=== PATIENT | female | born 1945 | race Caucasian/White ===

== ENCOUNTER 2020-03-12 10:50 | Outpatient (CLI) | payer MEDICARE, OTHER ==
--- NOTE | 2020-03-12 12:00 | DEXA Report ---
PROCEDURE: Dexa Spine and/or Hip INDICATIONS: OSTEOPOROSIS,POSTMENOPAUSAL TECHNIQUE: Dual energy x-ray absorptiometry (DXA) was performed on a [employer] System. Regions measur ed are the AP Spine, femoral neck, and if needed forearm. COMPARISON: None. FINDINGS: Lumbar Spine: Bone Mineral Density 0.897 g/cm/cm,T score -2.4 Left Hip: Bone Mineral Density 0.744 g/cm/cm,T score -2.1 Left Femoral Neck: Bone Mineral Density 0.756 g/cm/cm, T score -2.0 (T score greater or equal to -1.0: NORMAL) (T score from -1.1 to -2.4: OSTEOPENIA) (T score less than or equal to -2.5 to: OSTEOPOROSIS) Impression: Osteopenia of the lumbar spine and the left hip. Patients with diagnosis of osteoporosis or osteopenia should have regular bone mineral density assess ment. For those eligible for Medicare, routine testing is allowed once every 2 years. Testing frequ ency can be increased for patients who have rapidly progressing disease or for those who are receivin g medical therapy to restore bone mass. Reviewed by: Allie Mosley MD on 03/12/2020 11:59 AM PST Approved by: Allie Mosley MD on 03/12/2020 11:59 AM PST Station ID: [id number]
== END 2020-03-12 10:51 | disposition home or self-care (01) ==
LOC: DI 10:50
PROVIDERS: ATTEND Family Medicine
DX: M85.89 Other specified disorders of bone density and structure, multiple sites (principal)

== ENCOUNTER 2022-01-20 08:43 | Day surgery (SDC) | payer MEDICARE, OTHER ==
[2022-01-20] MEDS ORDERED: LACTATED RINGERS 1,000 ML IV ONE ×2 (09:08→12:54)
[2022-01-20] MEDS ORDERED: PROPOFOL 500 MG/50 ML 500 MG/50 ML VIAL ONE (10:36)
--- NOTE | 2022-01-20 10:47 | ANESTHESIA ---
Pre-Anesthesia VS, & Labs - Diagnosis Mild anemia, screening exam - Procedure EGD and colonoscopy Vital Signs: Temp Pulse Resp BP Pulse Ox O2 Flow Rate 36.9 C 67 13 154/79 H 100 0 01/20/22 09:09 01/20/22 09:09 01/20/22 09:09 01/20/22 09:09 01/20/22 09:09 01/20/22 09:09 Height: 5 ft 8 in Weight (kg): 57.1 kg Body Mass Index: 19.1 BMI Classification: Normal - NPO >8 hours - Is Patient ?: No Home Medications and Allergies Home Medications: Ambulatory Orders Estradiol [Estrace] 1 tab PO DAILY 01/20/22 Liothyronine [Cytomel] 2 tab PO DAILY 01/20/22 Medroxyprogesterone Acetate [Provera] 1 tab PO DAILY 01/20/22 Sod Sulf/Pot Chloride/Mag Sulf [Sutab 1.479-0.225-0.188 gm Tab] 01/20/22 Estradiol [Estrace] 1 tab PO DAILY 01/20/22 Liothyronine [Cytomel] 2 tab PO DAILY 01/20/22 Medroxyprogesterone Acetate [Provera] 1 tab PO DAILY 01/20/22 Sod Sulf/Pot Chloride/Mag Sulf [Sutab 1.479-0.225-0.188 gm Tab] 01/20/22 Allergies/Adverse Reactions: Allergies Allergy/AdvReac Type Severity Reaction Status Date / Time codeine Allergy Unknown Unknown Verified 01/20/22 09:23 Anes History & Medical History - Anesthetic History Anesthesia Complications: reports: Post-Operative Nausea/Vomiting - Medical History Cardiovascular: reports: None Pulmonary: reports: None Gastrointestinal: reports: Other Urinary: reports: None Neuro: reports: None Musculoskeletal: reports: Osteopenia Endocrine/Autoimmune: reports: None Blood Disorders: reports: Anemia Skin: reports: None Smoking Status: Never smoker Psychosocial: reports: No issues indicated History of Cancer?: Yes (melanoma) - Surgical History General: reports: Other Gynecologic: reports: Hysterectomy Orthopedic: reports: Other Exam General: Alert, Oriented x3, Cooperative, No acute distress Dental: WNL Mouth Openin Fingerbreadth Neck Mobility: Normal Mallampati classification: II Thyromental Distance: 4-6 cm Mental/Cognitive Status: Alert/Oriented X3, Normal for patient Plan Anesthesia Type: General, Total IV Consent for Procedure(s) Verified and Reviewed: Yes Code Status: Attempt Resuscitation ASA classification: 2-Mild systemic disease Is this case an emergency?: No
[2022-01-20] MEDS ORDERED: MIDAZOLAM 2 MG/2 ML VIAL ONE (11:52)
[2022-01-20] MEDS ORDERED: LIDOCAINE-PF 2% 10 ML AMP SUBQ ONE (11:55)
[2022-01-20 13:42] VITALS: BP 135/64
--- NOTE | 2022-01-20 16:14 | ANESTHESIA POST OP EVALUATION ---
Anesthesia Post Eval - Post Anesthesia Eval Vitals: Last Vital Signs Temp 36.6 C 01/20/22 13:42 Pulse 74 01/20/22 13:42 Resp 16 01/20/22 13:42 BP 135/64 H 01/20/22 13:42 Pulse Ox 100 01/20/22 13:42 O2 Flow Rate 0 01/20/22 09:09 CV Function Including HR & BP: Stable Pain Control: Satisfactory Nausea & Vomiting: Negative Mental Status: Baseline Respiratory Status: Airway Patent Hydration Status: Satisfactory Anesthesia Complications: None
== END 2022-01-20 08:44 | disposition home or self-care (01) ==
LOC: SDS 08:43
PROVIDERS: ATTEND Surgery
PROC: 0DJD8ZZ Inspection of Lower Intestinal Tract, Via Natural or Artificial Opening Endoscopic (ICD-10-PCS; principal; 2022-01-20 09:45)
PROC: 0DB68ZX Excision of Stomach, Via Natural or Artificial Opening Endoscopic, Diagnostic (ICD-10-PCS; 2022-01-20 09:45)
DX: K29.51 Unspecified chronic gastritis with bleeding (principal); D64.9 Anemia, unspecified; K64.8 Other hemorrhoids; K21.9 Gastro-esophageal reflux disease without esophagitis; F45.8 Other somatoform disorders
CPT/HCPCS: 43239; 45378; J7120

== ENCOUNTER 2022-04-12 09:46 | Outpatient (CLI) | payer MEDICARE, OTHER ==
--- NOTE | 2022-04-12 11:24 | DEXA Report ---
PROCEDURE: Dexa Spine and/or Hip INDICATIONS: OSTEOPOROSIS TECHNIQUE: Dual energy x-ray absorptiometry (DXA) was performed on a [employer] System. Regions measur ed are the AP Spine, femoral neck, and if needed forearm. COMPARISON: DEXA 03/12/2020 FINDINGS: Lumbar Spine: Bone Mineral Density 0.858 g/cm/cm,T score -2.7, osteoporosis. Decreased by 4.3% when compared to the exam from 03/12/2020. Left Femoral Neck: Bone Mineral Density 0.667 g/cm/cm, T score -2.7, osteoporosis. Left Hip: Bone Mineral Density 0.692 g/cm/cm,T score -2.5, osteoporosis. Decreased by 7.0% when compared to th e prior exam. (T score greater or equal to -1.0: NORMAL) (T score from -1.1 to -2.4: OSTEOPENIA) (T score less than or equal to -2.5 to: OSTEOPOROSIS) Impression: Bone mineral density within the osteoporosis range at the lumbar spine and left hip/left femoral neck , which has progressed when compared to the DEXA from 03/12/2020. Patients with diagnosis of osteoporosis or osteopenia should have regular bone mineral density assess ment. For those eligible for Medicare, routine testing is allowed once every 2 years. Testing frequ ency can be increased for patients who have rapidly progressing disease or for those who are receivin g medical therapy to restore bone mass. Reviewed by: Salvatore Osorio MD on 04/12/2022 11:22 AM PST Approved by: Salvatore Osorio MD on 04/12/2022 11:22 AM PST Station ID: [id number]
== END 2022-04-12 09:47 | disposition home or self-care (01) ==
LOC: DI 09:46
PROVIDERS: ATTEND Family Medicine
DX: M81.0 Age-related osteoporosis without current pathological fracture (principal)

== ENCOUNTER 2022-04-12 09:46 | Outpatient (CLI) | payer MEDICARE, OTHER ==
--- NOTE | 2022-04-13 15:37 | Mammography Report ---
BILATERAL DIGITAL SCREENING MAMMOGRAM 3D/2D: 04/12/2022 CLINICAL: Routine screening. Baseline exam. No prior exams were available for comparison. Both breasts are heterogeneously dense, which may obscure small masses (category c / 51-75% glandular tissue). There are benign calcifications in both breasts. No significant masses, calcifications, or other findings are seen in either breast. IMPRESSION: BENIGN There is no mammographic evidence of malignancy. A 1 year screening mammogram is recommended. Based on the Tyrer Cuzick model (a risk assessment model) the patients lifetime risk is 5.2% and her 10 year risk is 0.0%. According to the ACR, ACS, and NCCN guidelines, an annual breast MRI exam maikol g with mammogram is recommended if the patients lifetime risk is 20% or greater. This exam was interpreted at Station ID: [id number]. NOTE: For mammograms, a report in lay terms will be sent to the patient. Approximately 15% of breast malignancies will not be visualized mammographically. In the management of a palpable breast mass, a negative mammogram must not discourage biopsy of a clinically suspicious lesion. Electronically Signed By: Chetan [email or web address]:04/12/2022 17:13:44 ACR BI-RADS Category 2: Benign Finding(s) 3342F PARENCHYMAL PATTERN: (D) - The breast(s) demonstrate(s) heterogeneously dense fibroglandular parericky marina. BI-RADS CATEGORY: (2) - 2 RECOMMENDATION: (ANNUAL) - Recommend routine annual screening mammography. [id number] 1 year screening LATERALITY: (B)
== END 2022-04-12 09:47 | disposition home or self-care (01) ==
LOC: DI 09:46
PROVIDERS: ATTEND Family Medicine
DX: Z12.31 Encounter for screening mammogram for malignant neoplasm of breast (principal)

== ENCOUNTER 2022-04-12 09:47 | Outpatient (CLI) | payer MEDICARE, OTHER ==
--- NOTE | 2022-04-12 17:00 | XRAY Report ---
PROCEDURE: Hip w/Pelvis 2-3V RT INDICATIONS: RIGHT HIP PAIN TECHNIQUE: AP pelvis with lateral view(s) of the right hip(s). COMPARISON: None. FINDINGS: Bones: No fractures or dislocations. Moderate right worse than left bilateral hip joint osteoarthrit ic changes are seen with joint space narrowing and subchondral sclerosis. No evidence of avascular ne crosis of femoral head. Pelvic ring appears intact. No suspicious bony lesions. Soft tissues: The visualized bowel gas pattern is normal. No suspicious soft tissue calcifications. IMPRESSION: Moderate right worse than left bilateral hip joint osteoarthritis. No acute hip fracture or dislocation. No evidence of avascular necrosis. Reviewed by: Cyril Watts MD on 04/12/2022 4:59 PM PST Approved by: Cyril Watts MD on 04/12/2022 4:59 PM PST Station ID: [id number]
== END 2022-04-12 09:48 | disposition home or self-care (01) ==
LOC: DI 09:47
PROVIDERS: ATTEND Family Medicine
DX: M16.0 Bilateral primary osteoarthritis of hip (principal); M81.0 Age-related osteoporosis without current pathological fracture

== ENCOUNTER 2023-08-02 10:39 | Outpatient (CLI) | payer MEDICARE, OTHER ==
--- NOTE | 2023-08-02 14:05 | DEXA Report ---
PROCEDURE: Dexa Spine and/or Hip INDICATIONS: OSTEOPROSIS TECHNIQUE: Dual energy x-ray absorptiometry (DXA) was performed on a [email or web address] System. Regions measur ed are the AP Spine, femoral neck, and if needed forearm. COMPARISON: 04/12/2022, 03/19/2020 FINDINGS: Lumbar Spine: Bone Mineral Density: 0.851 g/cm/cm,T score: -2.7. There has been no statistically significant villar e in bone mineral density since the prior study. Left Femoral Neck: Bone Mineral Density: 0.703 g/cm/cm, T score: -2.4. Left Hip: Bone Mineral Density: 0.702 g/cm/cm,T score: -2.4. There has been no statistically significant change in bone mineral density since the prior study. (T score greater or equal to -1.0: NORMAL) (T score from -1.1 to -2.4: OSTEOPENIA) (T score less than or equal to -2.5 to: OSTEOPOROSIS) Impression: By WHO criteria, this patient has osteoporosis. No statistical interval change in bone mineral density of the lumbar spine. No statistical interval c hange in bone mineral density of the hip. Patients with diagnosis of osteoporosis or osteopenia should have regular bone mineral density assess ment. For those eligible for Medicare, routine testing is allowed once every 2 years. Testing frequ ency can be increased for patients who have rapidly progressing disease or for those who are receivin g medical therapy to restore bone mass. Reviewed by: Timmy Mena MD on 08/02/2023 2:04 PM PDT Approved by: Timmy Mena MD on 08/02/2023 2:04 PM PDT Station ID: [id number]
== END 2023-08-02 10:40 | disposition home or self-care (01) ==
LOC: DI 10:39
PROVIDERS: ATTEND Family Medicine
DX: M81.0 Age-related osteoporosis without current pathological fracture (principal)

== ENCOUNTER 2023-10-14 17:32 | Outpatient (CLI) | payer MEDICARE, OTHER ==
--- NOTE | 2023-10-17 13:18 | XRAY Report ---
PROCEDURE: Chest 2V INDICATIONS: COUGH,SOB TECHNIQUE: 2 views of the chest were acquired. COMPARISON: None. FINDINGS: Surgical changes and devices: None. Lungs and pleura: Patchy right upper lung zone opacity. Mediastinum: Mediastinal contours appear normal. Heart size is normal. Bones and chest wall: No suspicious bony lesions. Overlying soft tissues appear unremarkable. IMPRESSION: Patchy right upper lung zone opacity, could represent organizing pneumonia (given history), mild acti ve pneumonia, less likely scarring, mass or atelectasis. Recommend follow-up x-ray in 1-2 months to e nsure resolution. Reviewed by: Ha Wright MD on 10/17/2023 1:16 PM PDT Approved by: Ha Wright MD on 10/17/2023 1:16 PM PDT Station ID: [id number]
== END 2023-10-14 17:33 | disposition home or self-care (01) ==
LOC: DI.S 17:32
PROVIDERS: ATTEND Family Medicine
DX: R05.9 Cough, unspecified (principal); R06.02 Shortness of breath; R06.2 Wheezing; R91.8 Other nonspecific abnormal finding of lung field

== ENCOUNTER 2023-11-09 08:38 | Outpatient (CLI) | payer MEDICARE, OTHER ==
[2023-11-09 09:01] LABS: BASOPHILS # (AUTO) 0.1 10^3/uL (0.0-0.1); BASOPHILS % (AUTO) 1.2 %; EOSINOPHILS # (AUTO) 0.2 10^3/uL (0.0-0.7); EOSINOPHILS % (AUTO) 4.1 %; HCT - HEMATOCRIT 36.9 % (37.0-47.0); HGB - HEMOGLOBIN 11.7 g/dL (12.0-16.0); LYMPHOCYTES # (AUTO) 2.3 10^3/uL (1.5-3.5); LYMPHOCYTES % (AUTO) 38.9 %; MEAN CORPUSCULAR HEMOGLOBIN 30.1 pg (27.0-31.0); MEAN CORPUSCULAR HGB CONC 31.7 g/dL (32.0-36.0); MEAN CORPUSCULAR VOLUME 94.9 fL (81.0-99.0); MEAN PLATELET VOLUME 10.4 fL (7.9-10.8); MONOCYTES # (AUTO) 0.6 10^3/uL (0.0-1.0); NEUTROPHILS # (AUTO) 2.7 10^3/uL (1.5-6.6); NEUTROPHILS % (AUTO) 45.6 %; PLT - PLATELET COUNT 222 10^3/uL (130-450); RED BLOOD COUNT 3.89 10^6/uL (4.20-5.40); RED CELL DISTRIBUTION WIDTH 14.6 % (12.0-15.0); WHITE BLOOD COUNT 5.8 x10^3/uL (4.8-10.8)
[2023-11-09 09:26] LABS: ALBUMIN 4.2 g/dL (3.2-5.5); ALBUMIN/GLOBULIN RATIO 1.5 (1.0-2.2); CALCIUM 9.5 mg/dL (8.5-10.3); CREATININE 0.8 mg/dL (0.6-1.3); CRP HIGH SENSITIVITY 0.59 mg/L; POTASSIUM 4.4 mmol/L (3.5-4.5)
[2023-11-09 09:41] LABS: THYROID STIMULATING HORMONE 2.61 uIU/mL (0.34-5.60)
[2023-11-09 21:37] LABS: ESTIMATED AVERAGE GLUCOSE 108 mg/dL (70-100); HEMOGLOBIN A1c% 5.4 % (4.27-6.07)
[2023-11-10 08:11] LABS: ESTRADIOL 24.8 pg/mL (0.0-54.7); PROGESTERONE 0.2 ng/mL (.); VITAMIN D 25-HYDROXY 78.1 ng/mL (30.0-100.0)
== END 2023-11-09 08:39 | disposition home or self-care (01) ==
LOC: LAB 08:38
PROVIDERS: ATTEND Family Medicine
DX: E03.9 Hypothyroidism, unspecified (principal); R53.83 Other fatigue; E55.9 Vitamin D deficiency, unspecified; R73.09 Other abnormal glucose; J45.909 Unspecified asthma, uncomplicated; E78.5 Hyperlipidemia, unspecified; N95.1 Menopausal and female climacteric states
CPT/HCPCS: 36415; 80053; 82306; 82626; 82670; 83036; 83090; 84144; 84439; 84443; 84480; 84481; 84482; 85025; 86141

== ENCOUNTER 2023-11-28 11:12 | Outpatient (CLI) | payer MEDICARE, OTHER ==
--- NOTE | 2023-11-28 15:56 | XRAY Report ---
PROCEDURE: Chest 2V INDICATIONS: PNA TECHNIQUE: 2 views of the chest were acquired. COMPARISON: Chest radiographs 10/14/2023 FINDINGS: Surgical changes and devices: None. Lungs and pleura: No pleural effusions or pneumothorax. Lungs are hyperexpanded. Previously seen ri ght upper lung zone opacities are no longer visualized. No new consolidation. Mediastinum: Mediastinal contours appear normal. Heart size is normal. Bones and chest wall: No suspicious bony lesions. Overlying soft tissues appear unremarkable. IMPRESSION: Right upper lung zone opacities have resolved. Reviewed by: Salvatore Osorio MD on 11/28/2023 2:55 PM AKDT Approved by: Salvatore Osorio MD on 11/28/2023 2:55 PM AKDT Station ID: [id number]
== END 2023-11-28 11:13 | disposition home or self-care (01) ==
LOC: DI.S 11:12
PROVIDERS: ATTEND Family Medicine
DX: J18.9 Pneumonia, unspecified organism (principal)